=== PATIENT | male | born 1955 | race Caucasian/White ===

== ENCOUNTER 2018-12-20 09:15 | Outpatient (CLI) | payer MEDICARE ==
[~2018-12-20] VITALS: Ht 185.4 cm; Wt 112.0 kg
[2018-12-20 09:31] VITALS: BP 140/83
--- NOTE | 2018-12-20 16:15 | Consultation ---
DATE OF CONSULTATION: 12/20/2018 CONSULTING PHYSICIAN: Riaz Sparks M.D. CHIEF COMPLAINT: Referral for screening colonoscopy and also chronic GERD. HISTORY OF PRESENT ILLNESS: This is a pleasant 63-year-old male, patient of Dr. Anderson Virk. No prior history of colonoscopy who was referred to us for chronic GERD to the point that he cannot sleep flat at night. Gets a lot of symptoms even choking to the point he hard time breathing. Never had endoscopy. Never had colonoscopy. PAST MEDICAL HISTORY: 1. GERD. 2. Sleep apnea. PAST SURGICAL HISTORY: Had a right shoulder surgery. MEDICATIONS: He is on Flomax, p.r.n. TUMS, Mucinex. FAMILY HISTORY: No family history of GI malignancies. SOCIAL HISTORY: The patient denies any tobacco, alcohol, or drug abuse. ALLERGIES: No known allergies. REVIEW OF SYSTEMS: Positive for GERD and coughing. PHYSICAL EXAMINATION: VITAL SIGNS: Temperature 98.6, blood pressure is 140/83, pulse 82, respirations 20. HEENT: Normocephalic and atraumatic. Sclerae anicteric. NECK: Supple. No evidence of obvious lymphadenopathy. CARDIOVASCULAR: Regular rate and rhythm. Plus S1 and S2. No obvious murmurs. LUNGS: Clear to auscultation bilaterally. ABDOMEN: Positive bowel sounds. Soft and nontender. No rebound. No guarding. No peritoneal sign. EXTREMITIES: No cyanosis. No clubbing. No edema. ASSESSMENT AND PLAN: This is a 63-year-old male with chronic GERD who needs an endoscopy for evaluation. Also had a need for screening colonoscopy. We will give the patient omeprazole 40 mg p.o. daily. The patient was educated about reflux measures. He was given instruction and preparation for colonoscopy. We will plan for 01/04/2019. I want to thank Dr. Anderson Virk for this kind referral. Riaz Sparks M.D. DR: JUSTIN JOB#: [id number] CC: Anderson Virk M.D.; Fax#: [phone]
== END 2018-12-20 11:15 | disposition home or self-care (01) ==
LOC: PAN 09:15
DX: K21.9 Gastro-esophageal reflux disease without esophagitis (principal); G47.30 Sleep apnea, unspecified; R05 Cough